=== PATIENT | female | born 1945 | race Two or more races ===

== ENCOUNTER 2018-04-04 18:02 | Emergency (ER) | payer OTHER ==
[~2018-04-04] VITALS: Ht 152.4 cm; Wt 66.2 kg
[2018-04-04] MEDS ORDERED: SIMVASTATIN5 MG PO (18:28)
[2018-04-04] MEDS ORDERED: GLIMEPIRIDE1 MG PO (18:28)
[2018-04-04] MEDS ORDERED: ALTACE5 MG PO (18:29)
== END 2018-04-04 22:58 | disposition home or self-care (01) ==
LOC: ER 18:02
DX: J45.998 Other asthma (principal); J11.1 Influenza due to unidentified influenza virus with other respiratory manifestations